=== PATIENT | male | born 1965 | race Caucasian/White ===

== ENCOUNTER 2016-08-21 13:36 | Day surgery (SDC) | payer BC ==
[~2016-08-21 13:36] MED LIST: CEFAZOLIN SODIUM 2 GRAM PREMIX 100 ML IV PRN
[2016-08-21] MEDS ORDERED: LACTATED RINGERS 1,000 ML ONE (13:40)
[2016-08-21] MEDS ORDERED: CEFAZOLIN SODIUM 2 GRAM PREMIX 100 ML IV ONE ×2 (13:40→13:54)
[2016-08-21] MEDS ORDERED: IV START KIT ONE (13:40)
[2016-08-21] MEDS ORDERED: SODIUM CHLORIDE 0.9% FLUSH 10 ML ONE (13:46)
[2016-08-21] MEDS ORDERED: CEFAZOLIN SODIUM 1,000 MG VIAL ONE (13:46)
[2016-08-21] MEDS ORDERED: BUPIVACAINE 0.5% W/EPI SDV 30 ML VIAL ONE (13:46)
[2016-08-21] MEDS ORDERED: FENTANYL 100 MCG/2 ML VIAL ONE (14:18)
[2016-08-21] MEDS ORDERED: ONDANSETRON 4 MG/2ML 2 ML VIAL IV PRN ×2 (14:36→15:28)
[2016-08-21] MEDS ORDERED: PROMETHAZINE HCL 25 MG/ML VIAL IM PRN (14:36)
[2016-08-21] MEDS ORDERED: NALOXONE HCL 0.4 MG/ML VIAL IV PRN (14:36)
[2016-08-21] MEDS ORDERED: MEPERIDINE 25 MG/ML SYRINGE IV PRN (14:36)
[2016-08-21] MEDS ORDERED: MORPHINE SULFATE 4 MG/ML SYRINGE IV PRN ×2 (14:36→15:48)
[2016-08-21] MEDS ORDERED: ATROPINE SULFATE 0.4 MG/1 ML VIAL IV PRN (14:36)
[2016-08-21] MEDS ORDERED: LABETALOL HCL 5 MG/ML 20ML VIAL IV PRN (14:36)
[2016-08-21] MEDS ORDERED: LACTATED RINGERS 1,000 ML IV SCH (14:45)
[2016-08-21] MEDS ORDERED: METOCLOPRAMIDE HCL 5 MG/ML 2ML VIAL ONE (14:50)
[2016-08-21] MEDS ORDERED: PROPOFOL 20 ML IV ONE (14:50)
[2016-08-21] MEDS ORDERED: ONDANSETRON 4 MG/2ML 2 ML VIAL ONE ×2 (14:50→16:28)
[2016-08-21] MEDS ORDERED: KETOROLAC TROMETHAMINE 30 MG/ML 1 ML VIAL ONE (14:50)
[2016-08-21] MEDS ORDERED: MORPHINE SULFATE 10 MG/ML SYRINGE ONE (14:50)
[2016-08-21] MEDS ORDERED: MORPHINE SULFATE 2 MG/ML SYRINGE IV PRN (15:28)
[2016-08-21] MEDS ORDERED: KETOROLAC TROMETHAMINE 30 MG/ML 1 ML VIAL IV PRN (15:28)
[2016-08-21] MEDS ORDERED: OXYCODONE/ACETAMINOPHEN 5/325 MG TABLET PO PRN (15:28)
[2016-08-21] MEDS ORDERED: MORPHINE SULFATE 10 MG/ML SYRINGE IV PRN (15:49)
--- NOTE | 2016-08-21 16:08 | OP ---
WISAM SCALES [id number] DATE OF OPERATION: August 21, 2016 PREOPERATIVE DIAGNOSIS: Umbilical hernia. POSTOPERATIVE DIAGNOSIS: Umbilical hernia. PROCEDURE: UMBILICAL HERNIA REPAIR WITH SMALL VENTRALEX MESH PATCH. SURGEON: Mika Lauren M.D. COLLAR STITCHER: Terry Mcnamara ANESTHESIA: Siria Cheng C.R.N.A., laryngeal mask airway (LMA) general. INDICATIONS: This is a 51-year-old male who presents for elective repair of an umbilical hernia. DESCRIPTION: With informed consent he was taken to the operating room where he was laid supine on the operating room table. Laryngeal mask airway (LMA) general anesthesia was administered. The abdomen was prepped and draped in the usual fashion. Local anesthetic was administered around the umbilicus. A curvilinear incision was made. We dissected down to the fascia. We isolated the hernia sac at the level of the fascia. The hernia sac was from the umbilical skin with Metzenbaum scissors. The hernia sac was excised at the level of the fascia using electrocautery. Digital inspection revealed no adhesions or other intraabdominal pathology. A small Ventralex mesh patch was placed intraabdominal. Care was taken to insure that there were no visceral structures between the mesh and the abdominal wall. It was secured circumferentially with #2-0 Vicryl. The tails were cut away. The wound was irrigated. We appeared to have adequate hemostasis. The umbilical skin was sutured down to the fascia with some #3-0 Vicryl. Subcutaneous tissues were brought together with #3-0 Vicryl and the skin was closed with a running subcuticular #4-0 Monocryl. Mastisol and SteriStrips were placed. Sterile dressing was applied. He tolerated the procedure well and was taken to the recovery room in stable condition. A note was made that needle, instrument and lap counts were reported as correct at the time of closure. Cc: Cash Phan M.D.
[2016-08-21] MEDS ORDERED: OXYCODONE/ACETAMINOPHEN 5/325 MG TABLET ONE (16:12)
== END 2016-08-21 16:50 | disposition home or self-care (01) ==
LOC: SDC 13:36
PROVIDERS: ATTEND Surgery
PROC: 0WUF0JZ Supplement Abdominal Wall with Synthetic Substitute, Open Approach (ICD-10-PCS; principal; 2016-08-21)
DX: K42.9 Umbilical hernia without obstruction or gangrene (principal); I10 Essential (primary) hypertension; F41.9 Anxiety disorder, unspecified; K21.9 Gastro-esophageal reflux disease without esophagitis; Z79.82 Long term (current) use of aspirin
CPT/HCPCS: 49585; J0690 ×3; J3010; J2270; A9270; J2765; J1885; J2405 ×2; J7120